=== PATIENT | female | born 1950 | race Caucasian/White ===

== ENCOUNTER 2016-04-03 11:20 | Inpatient (IN) | payer OTHER, BC ==
[~2016-04-03] VITALS: Ht 152.4 cm; Wt 88.4 kg
[~2016-04-03 11:20] MED LIST: ACTOS15 MG PO; ACTOS30 MG PO; ACTOS45 MG PO; ADVAIR 500/501 DISK IH; CINNAMON BARK500 MG PO; CINNAMON500 MG PO; CLOTRIM ANTIFUN15 GM TP; COLACE100 MG PO; COUMADIN,JANTO7.5 MG PO; COUMADIN,JANTOV10 MG PO; COUMADIN10 MG PO; COUMADIN5 MG PO; COZAAR100 MG PO; CYPROHEPTADINE H4 MG PO; Cinnamon Bark PO; Cozaar PO; DEPAKOTE ER500 MG PO; DEPAKOTE500 MG PO; DOCUSATE SODIU100 MG PO; ENDOCET 5-3251 EACH PO; FEMARA2.5 MG PO; FEOSOL325 MG PO; FISH OIL 1,0001 EAC7 PO; FISH OIL300 MG PO; GLUCOPHAGE1000 MG PO; GLUCOPHAGE500 MG PO; Glucotrol PO; HYDROCODON-ACE1 EAC7 PO; K-DUR20 MEQ PO; KEFLEX500 MG PO; LASIX40 MG PO; LASIX80 MG PO; LEVAQUIN500 MG PO; LOVENOX30 MG/0.3 SC; Levothroid,Synthroid PO; MAGNESIUM400 M1 PO; Mag-Ox PO; NORCO 5/3251 TABLET PO; OXAYDO5 MG PO; OXYCODONE HCL5 MG PO; Omega III EPA + DHA PO; PRAVACHOL80 MG PO; PREDNISONE10 M1 PO; PREDNISONE10 MG PO; PROAIR HFA8.5 GM IH; PROMETHAZINE HC25 M1 PO; PROVENTIL,2.5 MG/3 M IH; Proventil,Ventolin H IH; ROXICODONE5 MG PO; SENOKOT S,PE1 TABLET PO; SINGULAIR10 MG PO; SYMBICORT60 INHALAT IH; SYNTHROID88 MCG PO; Singulair PO; TRANSDERM-SCO1 PATCH TD; TYLENOL REGULA325 MG PO; Tylenol Regular Stre PO; VENOFER100 MG/5 M IV; VITAMIN D22000 UNIT PO; VITAMIN K240 MCG PO; XOPENEX1.25 MG/0. IH; XOPENEX1.25 MG/3 IH; Zocor PO
[2016-04-03 11:51] LABS: HEMATOCRIT 36.6 % (36.0-46.0); MCH 28.5 PG (29.0-34.0); MCHC 31.7 G/DL (30.0-36.0); MCV 89.9 FL (83-99); MEAN PLAT.VOLUME 9.8 uM^3 (9.5-12.4); PLATELET COUNT 207 K/uL (156-360); RBC DIS.WIDTH-CV 16.2 % (11.8-14.6); RBC DIS.WIDTH-SD 52.1 % (39-53); RED BLOOD COUNT 4.07 M/uL (3.80-5.20); WHITE BLOOD COUNT 6.7 K/uL (4.1-10.2)
[2016-04-03] MEDS ORDERED: WARFARIN SODIUM10 MG PO (11:53)
[2016-04-03] MEDS ORDERED: ACTOS30 MG PO (11:57)
[2016-04-03 11:58] LABS: BASOPHIL COUNT 0.1 K/uL (0-0.1); EOSINOPHIL (%) 0 % (0-5); IMMATURE GRANULOCYTE (%) 0.1 % (0.0-0.7); IMMATURE GRANULOCYTE COUNT 0.1 K/uL; LYMPHOCYTE COUNT 0.9 K/uL (1.0-2.8); MONOCYTE (%) 8.4 % (3-12); MONOCYTE COUNT 0.6 K/uL (0-0.8); NEUTROPHIL COUNT 5.2 K/uL (1.8-6.4)
[2016-04-03] MEDS ORDERED: METFORMIN HCL1000 MG PO (11:58)
[2016-04-03] MEDS ORDERED: SINGULAIR10 MG PO (11:59)
[2016-04-03] MEDS ORDERED: OXAYDO5 MG PO (11:59)
[2016-04-03] MEDS ORDERED: HYDROCODON-ACE1 EAC7 PO (12:00)
[2016-04-03 12:09] LABS: CHLORIDE 101 mEq/L (99-109); POTASSIUM 3.7 mEq/L (3.7-5.4); SODIUM 138 mEq/L (136-147)
[2016-04-03 12:10] LABS: GLUCOSE 149 mg/dL (70-99)
[2016-04-03 12:12] LABS: ANION GAP 11 MEQ/L (2-14); TROP-I INTERPRETATION NEGATIVE; TROPONIN-I 0.03 ng/mL (0.0-0.30)
[2016-04-03 12:14] LABS: GFR ESTIMATE (CALCULATED) 40 mL/min/
[2016-04-03 12:15] LABS: UREA NITROGEN (BUN) 26 mg/dL (9-23)
[2016-04-03 16:16] LABS: INTER. NORMALIZED RATIO 1.3
[2016-04-03 16:19] LABS: PROTHROMBIN TIME 12.9 (9.2-11.2)
[2016-04-03] MEDS ORDERED: PREDNISONE10 MG PO (16:19)
[2016-04-03] MEDS ORDERED: AZITHROMYCIN250 MG1 PO (16:19)
[2016-04-03] MEDS ORDERED: OXYBUTYNIN CHLOR5 M1 PO (16:20)
[2016-04-03] MEDS ORDERED: CYANOCOBAL1000 MCG/2 IM (16:20)
[2016-04-03 17:37] VITALS: BP 136/74
[2016-04-03 18:13] VITALS: BP 136/74
[2016-04-03 19:47] LABS: TROP-I INTERPRETATION NEGATIVE; TROPONIN-I 0.03 ng/mL (0.0-0.30)
[2016-04-03 20:00] VITALS: BP 125/74
[2016-04-04] VITALS: BP 115/66
[2016-04-04 01:19] LABS: TROP-I INTERPRETATION NEGATIVE; TROPONIN-I 0.01 ng/mL (0.0-0.30)
[2016-04-04 04:00] VITALS: BP 148/70
[2016-04-04 06:05] LABS: HEMATOCRIT 34.7 % (36.0-46.0); MCH 28.3 PG (29.0-34.0); MCHC 31.4 G/DL (30.0-36.0); MCV 90.1 FL (83-99); MEAN PLAT.VOLUME 10.3 uM^3 (9.5-12.4); PLATELET COUNT 177 K/uL (156-360); RBC DIS.WIDTH-CV 16.2 % (11.8-14.6); RBC DIS.WIDTH-SD 53.3 % (39-53); RED BLOOD COUNT 3.85 M/uL (3.80-5.20)
[2016-04-04 06:06] LABS: WHITE BLOOD COUNT 4.5 K/uL (4.1-10.2)
[2016-04-04 06:07] LABS: INTER. NORMALIZED RATIO 1.4; PROTHROMBIN TIME 14.8 (9.2-11.2); PTT 39.1 (25-32)
[2016-04-04 06:12] LABS: ANION GAP 9 MEQ/L (2-14); CHLORIDE 103 MEQ/L (99-109); GFR ESTIMATE (CALCULATED) > 59 mL/min/; GLUCOSE 205 mg/dL (70-99); POTASSIUM 4.2 MEQ/L (3.7-5.4); SAMPLE HEMOLYSIS CHECK 0; SAMPLE ICTERIC CHECK 0; SAMPLE LIPEMIA CHECK 0; SODIUM 138 MEQ/L (136-147); UREA NITROGEN (BUN) 22 mg/dL (9-23)
[2016-04-04 07:40] VITALS: BP 127/65
[2016-04-04 08:01] LABS: INTERNAL CONTROL VALID? YES
[2016-04-04 12:18] VITALS: BP 128/71
[2016-04-04 15:30] VITALS: BP 134/66
[2016-04-04 19:54] VITALS: BP 136/64
[2016-04-05] VITALS: BP 133/63
[2016-04-05 04:00] VITALS: BP 156/74
[2016-04-05 07:21] VITALS: BP 147/72
[2016-04-05 08:14] LABS: INTER. NORMALIZED RATIO 2.5
[2016-04-05 11:00] VITALS: BP 138/64
[2016-04-05 16:13] VITALS: BP 134/63
[2016-04-05 16:28] LABS: INFLUENZA A VIRAL ANTIGEN NEGATIVE; INFLUENZA B VIRAL ANTIGEN NEGATIVE
[2016-04-05 20:01] VITALS: BP 148/70
[2016-04-06] VITALS: BP 168/70
[2016-04-06 04:00] VITALS: BP 176/73
[2016-04-06 07:13] LABS: INTER. NORMALIZED RATIO 2.9; PROTHROMBIN TIME 30.3 (9.2-11.2)
[2016-04-06 07:18] LABS: ANION GAP 25 MEQ/L (2-14); CHLORIDE 99 MEQ/L (99-109); GFR ESTIMATE (CALCULATED) > 59 mL/min/; GLUCOSE 201 mg/dL (70-99); MAGNESIUM 1.9 mg/dl (1.3-2.7); POTASSIUM 4.7 MEQ/L (3.7-5.4); SAMPLE HEMOLYSIS CHECK 0; SAMPLE ICTERIC CHECK 0; SAMPLE LIPEMIA CHECK 0; SODIUM 145 MEQ/L (136-147); UREA NITROGEN (BUN) 26 mg/dL (9-23)
[2016-04-06 07:19] LABS: HEMATOCRIT 34.5 % (36.0-46.0); MCH 28.5 PG (29.0-34.0); MCHC 31.3 G/DL (30.0-36.0); MEAN PLAT.VOLUME 10.9 uM^3 (9.5-12.4); PLATELET COUNT 187 K/uL (156-360); RBC DIS.WIDTH-CV 16.3 % (11.8-14.6); RBC DIS.WIDTH-SD 54.1 % (39-53); RED BLOOD COUNT 3.79 M/uL (3.80-5.20)
[2016-04-06 07:20] LABS: WHITE BLOOD COUNT 11.2 K/uL (4.1-10.2)
[2016-04-06 08:54] VITALS: BP 153/73
[2016-04-06 15:45] VITALS: BP 121/60
[2016-04-06 23:44] VITALS: BP 189/88
[2016-04-07 07:09] LABS: EOSINOPHIL (%) 0 % (0-5); HEMATOCRIT 33.6 % (36.0-46.0); IMMATURE GRANULOCYTE (%) 1.7 % (0.0-0.7); IMMATURE GRANULOCYTE COUNT 0.2 K/uL; LYMPHOCYTE COUNT 0.9 K/uL (1.0-2.8); MCH 28.2 PG (29.0-34.0); MCHC 32.1 G/DL (30.0-36.0); MCV 87.7 FL (83-99); MEAN PLAT.VOLUME 10.4 uM^3 (9.5-12.4); MONOCYTE (%) 1.3 % (3-12); MONOCYTE COUNT 0.1 K/uL (0-0.8); NEUTROPHIL (%) 88.4 % (45-76); NEUTROPHIL COUNT 9.1 K/uL (1.8-6.4); PLATELET COUNT 188 K/uL (156-360); RBC DIS.WIDTH-CV 15.9 % (11.8-14.6); RBC DIS.WIDTH-SD 51.4 % (39-53); RED BLOOD COUNT 3.83 M/uL (3.80-5.20); WHITE BLOOD COUNT 10.3 K/uL (4.1-10.2)
[2016-04-07 07:12] LABS: INTER. NORMALIZED RATIO 2.6; PROTHROMBIN TIME 26.8 (9.2-11.2)
[2016-04-07 07:31] LABS: ANION GAP 13 MEQ/L (2-14); CHLORIDE 97 MEQ/L (99-109); GFR ESTIMATE (CALCULATED) > 59 mL/min/; GLUCOSE 222 mg/dL (70-99); POTASSIUM 3.9 MEQ/L (3.7-5.4); SAMPLE HEMOLYSIS CHECK 0; SAMPLE ICTERIC CHECK 0; SAMPLE LIPEMIA CHECK 0; SODIUM 139 MEQ/L (136-147); UREA NITROGEN (BUN) 30 mg/dL (9-23)
[2016-04-07 07:34] LABS: MAGNESIUM 1.6 mg/dl (1.3-2.7)
[2016-04-07 12:50] VITALS: BP 118/58
[2016-04-07 15:18] VITALS: BP 149/72
[2016-04-07 23:49] VITALS: BP 174/72
[2016-04-08 06:49] LABS: POINT-OF-CARE USER ID STWLMB34
[2016-04-08 07:21] LABS: HEMATOCRIT 34.1 % (36.0-46.0); MCH 28.2 PG (29.0-34.0); MCV 88.3 FL (83-99); MEAN PLAT.VOLUME 10.8 uM^3 (9.5-12.4); PLATELET COUNT 202 K/uL (156-360); RBC DIS.WIDTH-CV 15.8 % (11.8-14.6); RBC DIS.WIDTH-SD 50.9 % (39-53); RED BLOOD COUNT 3.86 M/uL (3.80-5.20); WHITE BLOOD COUNT 10.4 K/uL (4.1-10.2)
[2016-04-08 07:29] LABS: INTER. NORMALIZED RATIO 2.2
[2016-04-08 07:41] LABS: ANION GAP 13 MEQ/L (2-14); CHLORIDE 96 MEQ/L (99-109); GFR ESTIMATE (CALCULATED) > 59 mL/min/; GLUCOSE 248 mg/dL (70-99); MAGNESIUM 1.8 mg/dl (1.3-2.7); POTASSIUM 4.3 MEQ/L (3.7-5.4); SAMPLE HEMOLYSIS CHECK 1; SAMPLE ICTERIC CHECK 0; SAMPLE LIPEMIA CHECK 0; SODIUM 137 MEQ/L (136-147); UREA NITROGEN (BUN) 34 mg/dL (9-23)
[2016-04-08 08:40] VITALS: BP 156/72
[2016-04-08 10:53] LABS: EOSINOPHIL (%) 0 % (0-5); IMMATURE GRANULOCYTE (%) 2.1 % (0.0-0.7); IMMATURE GRANULOCYTE COUNT 0.2 K/uL; LYMPHOCYTE COUNT 0.8 K/uL (1.0-2.8); MONOCYTE (%) 1.5 % (3-12); MONOCYTE COUNT 0.2 K/uL (0-0.8); NEUTROPHIL (%) 88.2 % (45-76); NEUTROPHIL COUNT 9.2 K/uL (1.8-6.4)
[2016-04-08 14:31] LABS: HEMATOLOGY COMMENT 1 SMEAR COMPATIBLE
[2016-04-08 15:15] VITALS: BP 166/74
[2016-04-08 16:23] LABS: POINT-OF-CARE USER ID STWLMB34
[2016-04-08 23:15] VITALS: BP 150/66
[2016-04-09 06:27] LABS: HEMATOCRIT 36.5 % (36.0-46.0); MCH 27.4 PG (29.0-34.0); MCV 88.4 FL (83-99); MEAN PLAT.VOLUME 10.2 uM^3 (9.5-12.4); NRBC (%) 0.3 /100 WBC (0-0); PLATELET COUNT 220 K/uL (156-360); RBC DIS.WIDTH-SD 51.7 % (39-53); RED BLOOD COUNT 4.13 M/uL (3.80-5.20); WHITE BLOOD COUNT 11.8 K/uL (4.1-10.2)
[2016-04-09 06:44] LABS: INTER. NORMALIZED RATIO 3.2
[2016-04-09 07:03] LABS: ANION GAP 12 MEQ/L (2-14); CHLORIDE 93 MEQ/L (99-109); GFR ESTIMATE (CALCULATED) 53 mL/min/; GLUCOSE 198 mg/dL (70-99); MAGNESIUM 1.9 mg/dl (1.3-2.7); POTASSIUM 3.6 MEQ/L (3.7-5.4); PROTHROMBIN TIME 33.7 (9.2-11.2); SAMPLE HEMOLYSIS CHECK 0; SAMPLE ICTERIC CHECK 0; SAMPLE LIPEMIA CHECK 0; SODIUM 139 MEQ/L (136-147); UREA NITROGEN (BUN) 37 mg/dL (9-23)
[2016-04-09 07:42] VITALS: BP 175/83
[2016-04-09 08:58] LABS: DELETE MACHINE DIFF? YES
[2016-04-09 08:59] LABS: ABS NEUTROPHIL COUNT 10.74; ANISOCYTOSIS 1+; HYPOCHROMASIA OCC; MACROCYTES OCC; MICROCYTOSIS OCC; PLAT.SUFFICIENCY ADEQUATE; SPHEROCYTES OCC; USER ID TLW
[2016-04-09 15:50] VITALS: BP 150/73
[2016-04-09 23:37] VITALS: BP 159/68
[2016-04-10 06:58] LABS: INTER. NORMALIZED RATIO 3.3; PROTHROMBIN TIME 35.1 (9.2-11.2)
[2016-04-10 08:35] VITALS: BP 129/63
[2016-04-10] MEDS ORDERED: LEVEMIR100 UNIT/2 SC (11:43)
[2016-04-10] MEDS ORDERED: PREDNISONE10 MG PO (11:43)
[2016-04-10] MEDS ORDERED: MYCOSTATIN 100,60 ML PO (11:43)
[2016-04-10] MEDS ORDERED: SPIRIVA RESPIMAT4 GM IH (11:43)
[2016-04-10] MEDS ORDERED: AUGMENTIN500 MG PO (11:43)
[2016-04-10] MEDS ORDERED: COUMADIN5 MG PO (11:48)
[2016-04-10] MEDS ORDERED: COUMADIN6 MG PO (12:06)
== END 2016-04-10 14:49 | disposition home or self-care (01) | DRG 189 ==
LOC: EME 11:20 → 2EASTP 16:02 → EDOF 16:02 → 2EASTP 17:21
PROVIDERS: Emergency Medicine; Internal Medicine
DX: J96.01 Acute respiratory failure with hypoxia (principal); J18.9 Pneumonia, unspecified organism; N17.9 Acute kidney failure, unspecified; J45.41 Moderate persistent asthma with (acute) exacerbation; B37.0 Candidal stomatitis; E87.6 Hypokalemia; J98.4 Other disorders of lung; E11.9 Type 2 diabetes mellitus without complications; I10 Essential (primary) hypertension; E78.5 Hyperlipidemia, unspecified; I48.2 Chronic atrial fibrillation; I50.9 Heart failure, unspecified; G47.33 Obstructive sleep apnea (adult) (pediatric); I27.2 Other secondary pulmonary hypertension; K21.9 Gastro-esophageal reflux disease without esophagitis; D63.8 Anemia in other chronic diseases classified elsewhere; K59.00 Constipation, unspecified; E03.9 Hypothyroidism, unspecified; I73.9 Peripheral vascular disease, unspecified; Z96.652 Presence of left artificial knee joint; E66.9 Obesity, unspecified; Z68.38 Body mass index [BMI] 38.0-38.9, adult; Z85.3 Personal history of malignant neoplasm of breast; Z95.0 Presence of cardiac pacemaker; Z91.19 Patient's noncompliance with other medical treatment and regimen; Z79.01 Long term (current) use of anticoagulants; Z88.5 Allergy status to narcotic agent
CPT/HCPCS: 36415; 71010; 71020; 71250; 74000; 80048; 81003; 82948; 83605; 83735; 84484; 85025; 85027; 85610; 85730; 87040; 87070; 87106; 87205; 87449; 87502; 93005; 94640; 94640 76; 94760; 94799; 99202; 99281; 99285; J0696; J1650; J1815; J1956; J2920; J2930; J7030; J7050; J7512

== ENCOUNTER 2017-01-24 15:15 | Inpatient (IN) | payer OTHER, BC ==
[~2017-01-24] VITALS: Ht 152.4 cm; Wt 85.3 kg
[~2017-01-24 15:15] MED LIST changes: +AUGMENTIN500 MG PO; +AZITHROMYCIN250 MG1 PO; +COUMADIN6 MG PO; +CYANOCOBAL1000 MCG/2 IM; +LEVEMIR100 UNIT/2 SC; +METFORMIN HCL1000 MG PO; +MYCOSTATIN 100,60 ML PO; +OXYBUTYNIN CHLO10 MG PO; +SPIRIVA RESPIMAT4 GM IH; +WARFARIN SODIUM10 MG PO
[2017-01-24 16:06] LABS: HEMATOCRIT 38.4 % (36.0-46.0); MCH 28.1 PG (29.0-34.0); MCHC 31.5 G/DL (30.0-36.0); MCV 89.3 FL (83-99); MEAN PLAT.VOLUME 10.6 uM^3 (9.5-12.4); PLATELET COUNT 298 K/uL (156-360); RBC DIS.WIDTH-CV 16.5 % (11.8-14.6); RBC DIS.WIDTH-SD 53.4 % (39-53); WHITE BLOOD COUNT 11.1 K/uL (4.1-10.2)
[2017-01-24 16:12] LABS: INTER. NORMALIZED RATIO 2.9; PROTHROMBIN TIME 33.5 SEC (10.2-12.9)
[2017-01-24 16:17] LABS: CHLORIDE 101 mEq/L (99-109); POTASSIUM 4.9 mEq/L (3.7-5.4); SODIUM 135 mEq/L (136-147)
[2017-01-24 16:19] LABS: GLUCOSE 385 mg/dL (70-99)
[2017-01-24 16:20] LABS: ANION GAP 20 MEQ/L (2-14)
[2017-01-24 16:23] LABS: GFR ESTIMATE (CALCULATED) 40 mL/min/
[2017-01-24 16:24] LABS: UREA NITROGEN (BUN) 34 mg/dL (9-23)
[2017-01-24 16:27] LABS: TROP-I INTERPRETATION NEGATIVE; TROPONIN-I 0.03 ng/mL (0.0-0.30)
[2017-01-24 18:18] LABS: BASE EXCESS -3.8 mEq/L (-3 to +3); BICARBONATE 18.6 mEq/L (22-26); CARBOXY HGB 1.2 % (0-5); COMMENTS - BLOOD GASES NAC+; DEVICE NC; METHEMOGLOBIN 0.2 % (0-1.5); O2 FLOW 6 L/MIN; PCO2 25 mm Hg (35-45); PO2 75 mm Hg (80-100); SITE RB; TOTAL RESP RATE 17 resp/min; pH 7.48 (7.35-7.45)
[2017-01-24 18:28] LABS: CARBON DIOXIDE (BICARBONATE) 26.3 MEQ/L (20-31)
[2017-01-24] MEDS ORDERED: SPIRIVA RESPIMAT4 GM IH (18:29)
[2017-01-24] MEDS ORDERED: LEVEMIR100 UNIT/2 SC (18:31)
[2017-01-24] MEDS ORDERED: PREDNISONE10 MG PO (18:33)
[2017-01-24] MEDS ORDERED: COUMADIN7.5 MG PO (18:35)
[2017-01-24] MEDS ORDERED: TRAMADOL HCL50 MG PO (18:37)
[2017-01-24] MEDS ORDERED: GLIPIZIDE5 MG PO (18:39)
[2017-01-24] MEDS ORDERED: PROAIR HFA8.5 GM IH (18:41)
[2017-01-24] MEDS ORDERED: TYLENOL EXTRA500 MG PO (18:41)
[2017-01-24] MEDS ORDERED: NOVOLIN,HU100 UNITS1 SC (18:44)
[2017-01-24 19:29] LABS: POINT-OF-CARE METER ID UU13113747; POINT-OF-CARE USER ID 608261302
[2017-01-24 20:14] VITALS: BP 143/65
[2017-01-24 21:40] LABS: ADD MIUA? YES; BILIRUBIN NEGATIVE; BLOOD MODERATE; COLOR STRAW ((YELLOW)); GLUCOSE (STRIP) NEGATIVE; KETONES NEGATIVE; LEUKOCYTES NEGATIVE; NITRITE NEGATIVE; PROTEIN (STRIP) NEGATIVE; SPECIFIC GRAVITY 1.006 (1.000-1.030); UROBILINOGEN 0.2 MG/DL (0.2-1.0)
[2017-01-24 21:49] LABS: BACTERIA RARE /HPF; EPITHELIAL CELLS NONE SEEN /HPF; HYALINE CASTS 0-5 /LPF; MUCUS TRACE /LPF; RED BLOOD CELLS 0-5 /HPF (0-5); UCUL ADDED? NO; WHITE BLOOD CELLS 0-5 /HPF (0-5)
[2017-01-24 22:18] LABS: POINT-OF-CARE METER ID UU13113717
[2017-01-24 22:23] LABS: TROP-I INTERPRETATION NEGATIVE; TROPONIN-I 0.03 ng/mL (0.0-0.30)
[2017-01-24 22:53] LABS: ANION GAP 16 MEQ/L (2-14); CHLORIDE 99 MEQ/L (99-109); SAMPLE HEMOLYSIS CHECK 0; SAMPLE ICTERIC CHECK 0; SAMPLE LIPEMIA CHECK 0; SODIUM 140 MEQ/L (136-147)
[2017-01-24 22:59] LABS: GFR ESTIMATE (CALCULATED) 48 mL/min/; UREA NITROGEN (BUN) 30 mg/dL (9-23)
[2017-01-24 23:20] LABS: GLUCOSE 192 mg/dL (70-99); POTASSIUM 3.5 MEQ/L (3.7-5.4)
[2017-01-25] VITALS: BP 128/60
[2017-01-25 03:48] LABS: POINT-OF-CARE METER ID UU14174225
[2017-01-25 04:04] VITALS: BP 110/57
[2017-01-25 04:10] LABS: CHLORIDE 97 mEq/L (99-109); POTASSIUM 3.7 mEq/L (3.7-5.4); SODIUM 137 mEq/L (136-147)
[2017-01-25 04:12] LABS: EOSINOPHIL (%) 0.1 % (0-5); GLUCOSE 192 mg/dL (70-99); HEMATOCRIT 31.1 % (36.0-46.0); IMMATURE GRANULOCYTE (%) 0.5 % (0.0-0.7); IMMATURE GRANULOCYTE COUNT 0.1 K/uL; INSTRUMENT ABS NEUTROPHIL CT 10.4 K/uL; LYMPHOCYTE COUNT 1.5 K/uL (1.0-2.8); MCH 28.2 PG (29.0-34.0); MCHC 32.2 G/DL (30.0-36.0); MCV 87.6 FL (83-99); MEAN PLAT.VOLUME 10.2 uM^3 (9.5-12.4); MONOCYTE (%) 4.6 % (3-12); MONOCYTE COUNT 0.6 K/uL (0-0.8); NEUTROPHIL (%) 82.6 % (45-76); NEUTROPHIL COUNT 10.4 K/uL (1.8-6.4); NRBC (%) 0.2 /100 WBC (0-0); PLATELET COUNT 304 K/uL (156-360); RBC DIS.WIDTH-CV 16.1 % (11.8-14.6); RBC DIS.WIDTH-SD 51.8 % (39-53); RED BLOOD COUNT 3.55 M/uL (3.80-5.20); WHITE BLOOD COUNT 12.6 K/uL (4.1-10.2)
[2017-01-25 04:14] LABS: ANION GAP 16 MEQ/L (2-14)
[2017-01-25 04:16] LABS: GFR ESTIMATE (CALCULATED) 48 mL/min/
[2017-01-25 04:17] LABS: UREA NITROGEN (BUN) 31 mg/dL (9-23)
[2017-01-25 04:24] LABS: TROP-I INTERPRETATION NEGATIVE; TROPONIN-I 0.03 ng/mL (0.0-0.30)
[2017-01-25 08:10] LABS: INTERNAL CONTROL VALID? YES
[2017-01-25 08:44] VITALS: BP 130/70
[2017-01-25 08:48] LABS: POINT-OF-CARE METER ID UU14174225
[2017-01-25 09:52] LABS: INTER. NORMALIZED RATIO 2.8; PROTHROMBIN TIME 32.2 SEC (10.2-12.9)
[2017-01-25 11:15] VITALS: BP 130/60
[2017-01-25 11:52] LABS: POINT-OF-CARE METER ID UU14174225
[2017-01-25 15:18] VITALS: BP 119/61
[2017-01-25 17:24] LABS: POINT-OF-CARE METER ID UU14174225
[2017-01-25 19:46] VITALS: BP 111/57
[2017-01-25 19:57] LABS: POINT-OF-CARE METER ID UU13113717
[2017-01-25 21:30] LABS: POINT-OF-CARE METER ID UU13113717
[2017-01-26 00:29] VITALS: BP 114/61
[2017-01-26 04:54] LABS: POINT-OF-CARE METER ID UU14174225
[2017-01-26 05:15] VITALS: BP 120/71
[2017-01-26 06:48] LABS: HEMATOCRIT 33.5 % (36.0-46.0); MCH 27.3 PG (29.0-34.0); MCHC 30.4 G/DL (30.0-36.0); MCV 89.6 FL (83-99); PLATELET COUNT 298 K/uL (156-360); RBC DIS.WIDTH-CV 15.9 % (11.8-14.6); RBC DIS.WIDTH-SD 53.5 % (39-53); RED BLOOD COUNT 3.74 M/uL (3.80-5.20); WHITE BLOOD COUNT 14.5 K/uL (4.1-10.2)
[2017-01-26 06:51] LABS: INTER. NORMALIZED RATIO 2.8
[2017-01-26 07:13] LABS: ANION GAP 12 MEQ/L (2-14); CHLORIDE 100 MEQ/L (99-109); GFR ESTIMATE (CALCULATED) 53 mL/min/; GLUCOSE 133 mg/dL (70-99); POTASSIUM 4.3 MEQ/L (3.7-5.4); SAMPLE HEMOLYSIS CHECK 0; SAMPLE ICTERIC CHECK 0; SAMPLE LIPEMIA CHECK 0; SODIUM 140 MEQ/L (136-147); UREA NITROGEN (BUN) 33 mg/dL (9-23)
[2017-01-26 07:19] VITALS: BP 141/62
[2017-01-26 13:06] LABS: POINT-OF-CARE METER ID UU13113717
[2017-01-26 15:15] VITALS: BP 135/63
[2017-01-26 18:00] LABS: POINT-OF-CARE METER ID UU13113717
[2017-01-26 20:12] LABS: POINT-OF-CARE METER ID UU14174225
[2017-01-26 20:36] VITALS: BP 135/73
[2017-01-27] VITALS (10 sets, daily range): BP systolic 113–150; BP diastolic 55–70
[2017-01-27 00:49] LABS: POINT-OF-CARE METER ID UU14174225
[2017-01-27 05:59] LABS: POINT-OF-CARE METER ID UU14174225
[2017-01-27 06:41] LABS: HEMATOCRIT 30.4 % (36.0-46.0); MCH 28.7 PG (29.0-34.0); MCHC 32.2 G/DL (30.0-36.0); MCV 88.9 FL (83-99); MEAN PLAT.VOLUME 10.5 uM^3 (9.5-12.4); PLATELET COUNT 210 K/uL (156-360); RBC DIS.WIDTH-CV 15.9 % (11.8-14.6); RBC DIS.WIDTH-SD 52.1 % (39-53); RED BLOOD COUNT 3.42 M/uL (3.80-5.20); WHITE BLOOD COUNT 12.4 K/uL (4.1-10.2)
[2017-01-27 07:17] LABS: ANION GAP 15 MEQ/L (2-14); CHLORIDE 100 MEQ/L (99-109); GFR ESTIMATE (CALCULATED) 53 mL/min/; POTASSIUM 3.6 MEQ/L (3.7-5.4); SAMPLE HEMOLYSIS CHECK 0; SAMPLE ICTERIC CHECK 0; SAMPLE LIPEMIA CHECK 0; SODIUM 139 MEQ/L (136-147); UREA NITROGEN (BUN) 38 mg/dL (9-23)
[2017-01-27 07:24] LABS: GLUCOSE 233 mg/dL (70-99)
[2017-01-27 07:33] LABS: INTER. NORMALIZED RATIO 2.5; PROTHROMBIN TIME 28.3 SEC (10.2-12.9)
[2017-01-27 08:19] LABS: POINT-OF-CARE METER ID UU14174225
[2017-01-27 18:11] LABS: POINT-OF-CARE METER ID UU13113717
[2017-01-28] VITALS (12 sets, daily range): BP systolic 126–180; BP diastolic 56–75
[2017-01-28 06:59] LABS: INTER. NORMALIZED RATIO 2.6; PROTHROMBIN TIME 29.5 SEC (10.2-12.9)
[2017-01-28 07:59] LABS: POINT-OF-CARE METER ID UU13113717
[2017-01-28 10:49] LABS: POINT-OF-CARE METER ID UU14174225
[2017-01-28 10:49] LABS: POINT-OF-CARE METER ID UU13113717
[2017-01-28 12:16] LABS: POINT-OF-CARE METER ID UU13113717
[2017-01-28 17:23] LABS: POINT-OF-CARE METER ID UU14174225
[2017-01-28 20:05] LABS: BASE EXCESS 9.2 mEq/L (-3 to +3); CARBOXY HGB 1.2 % (0-5); METHEMOGLOBIN 1.1 % (0-1.5); pH 7.49 (7.35-7.45)
[2017-01-28 20:06] LABS: BICARBONATE 33.5 mEq/L (22-26); COMMENTS - BLOOD GASES C+; DEVICE HFNC; O2 FLOW 15 L/MIN; PCO2 44 mm Hg (35-45); PO2 45 mm Hg (80-100); SITE RR; TOTAL RESP RATE 36 resp/min
[2017-01-28 21:02] LABS: POINT-OF-CARE METER ID UU13113717
[2017-01-29] VITALS (13 sets, daily range): BP systolic 75–152; BP diastolic 44–77
[2017-01-29 06:35] LABS: HEMATOCRIT 28.7 % (36.0-46.0); MCH 28.9 PG (29.0-34.0); MCHC 32.1 G/DL (30.0-36.0); MCV 90.3 FL (83-99); MEAN PLAT.VOLUME 10.2 uM^3 (9.5-12.4); RBC DIS.WIDTH-CV 15.9 % (11.8-14.6); RBC DIS.WIDTH-SD 53.2 % (39-53); RED BLOOD COUNT 3.18 M/uL (3.80-5.20)
[2017-01-29 06:39] LABS: PLATELET COUNT 276 K/uL (156-360)
[2017-01-29 06:51] LABS: INTER. NORMALIZED RATIO 2.1; PROTHROMBIN TIME 23.6 SEC (10.2-12.9)
[2017-01-29 07:02] LABS: ANION GAP 13 MEQ/L (2-14); CHLORIDE 93 MEQ/L (99-109); GFR ESTIMATE (CALCULATED) 53 mL/min/; GLUCOSE 232 mg/dL (70-99); POTASSIUM 3.2 MEQ/L (3.7-5.4); SAMPLE HEMOLYSIS CHECK 0; SAMPLE ICTERIC CHECK 0; SAMPLE LIPEMIA CHECK 0; SODIUM 143 MEQ/L (136-147); UREA NITROGEN (BUN) 42 mg/dL (9-23)
[2017-01-29 07:23] LABS: POINT-OF-CARE METER ID UU13113717
[2017-01-29 11:11] LABS: POINT-OF-CARE METER ID UU13113717
[2017-01-29 13:42] LABS: METH RESISTANT S AUREUS PCR NEGATIVE (NEGATIVE)
[2017-01-29 13:57] LABS: PROBE CHECK PASS; SPECIMEN PROCESSING CONTROL PASS
[2017-01-29 14:49] LABS: PROTHROMBIN TIME 23.5 SEC (10.2-12.9)
[2017-01-29 14:52] LABS: PTT 27.2 SEC (25-37)
[2017-01-29 17:40] LABS: POINT-OF-CARE METER ID UU14208751
[2017-01-29 22:34] LABS: POINT-OF-CARE METER ID UU14208751
[2017-01-30] VITALS (24 sets, daily range): BP systolic 82–128; BP diastolic 38–70
[2017-01-30 05:43] LABS: EOSINOPHIL (%) 0 % (0-5); HEMATOCRIT 25.7 % (36.0-46.0); IMMATURE GRANULOCYTE COUNT 0.1 K/uL; INSTRUMENT ABS NEUTROPHIL CT 13.6 K/uL; LYMPHOCYTE COUNT 0.3 K/uL (1.0-2.8); MCH 28.6 PG (29.0-34.0); MCHC 31.5 G/DL (30.0-36.0); MCV 90.8 FL (83-99); MEAN PLAT.VOLUME 11.2 uM^3 (9.5-12.4); MONOCYTE (%) 0.8 % (3-12); MONOCYTE COUNT 0.1 K/uL (0-0.8); NEUTROPHIL (%) 95.9 % (45-76); NEUTROPHIL COUNT 13.6 K/uL (1.8-6.4); NRBC (%) 0.1 /100 WBC (0-0); PLATELET COUNT 248 K/uL (156-360); RBC DIS.WIDTH-CV 16.2 % (11.8-14.6); RBC DIS.WIDTH-SD 53.5 % (39-53); RED BLOOD COUNT 2.83 M/uL (3.80-5.20); WHITE BLOOD COUNT 14.1 K/uL (4.1-10.2)
[2017-01-30 05:45] LABS: INTER. NORMALIZED RATIO 2.1; PROTHROMBIN TIME 24.4 SEC (10.2-12.9)
[2017-01-30 06:25] LABS: C3 COMPLEMENT 161 MG/DL (58-170); C4 COMPLEMENT 30 MG/DL (10-40)
[2017-01-30 06:26] LABS: ANION GAP 16 MEQ/L (2-14); CHLORIDE 98 MEQ/L (99-109); GFR ESTIMATE (CALCULATED) 44 mL/min/; GLUCOSE 282 mg/dL (70-99); SAMPLE HEMOLYSIS CHECK 0; SAMPLE ICTERIC CHECK 0; SAMPLE LIPEMIA CHECK 0; SODIUM 146 MEQ/L (136-147); UREA NITROGEN (BUN) 56 mg/dL (9-23)
[2017-01-30 06:28] LABS: POTASSIUM 3.9 MEQ/L (3.7-5.4)
[2017-01-30 07:03] LABS: POINT-OF-CARE METER ID UU14208751
[2017-01-30 07:11] LABS: ERTH.SED.RATE 48 MM/HR (0-30)
[2017-01-30 12:40] LABS: POINT-OF-CARE METER ID UU14174217
[2017-01-30 18:23] LABS: POINT-OF-CARE METER ID UU14174217
[2017-01-31] VITALS (18 sets, daily range): BP systolic 93–150; BP diastolic 49–76
[2017-01-31 00:26] LABS: POINT-OF-CARE METER ID UU14314082
[2017-01-31 05:46] LABS: POINT-OF-CARE METER ID UU14174217
[2017-01-31 05:55] LABS: EOSINOPHIL (%) 0 % (0-5); HEMATOCRIT 26.3 % (36.0-46.0); IMMATURE GRANULOCYTE (%) 1.1 % (0.0-0.7); IMMATURE GRANULOCYTE COUNT 0.2 K/uL; INSTRUMENT ABS NEUTROPHIL CT 13.8 K/uL; LYMPHOCYTE COUNT 0.3 K/uL (1.0-2.8); MCH 27.6 PG (29.0-34.0); MCHC 30.8 G/DL (30.0-36.0); MCV 89.8 FL (83-99); MEAN PLAT.VOLUME 10.6 uM^3 (9.5-12.4); MONOCYTE (%) 1.3 % (3-12); MONOCYTE COUNT 0.2 K/uL (0-0.8); NEUTROPHIL (%) 95.2 % (45-76); NEUTROPHIL COUNT 13.8 K/uL (1.8-6.4); NRBC (%) 0.1 /100 WBC (0-0); PLATELET COUNT 287 K/uL (156-360); RBC DIS.WIDTH-CV 16.3 % (11.8-14.6); RED BLOOD COUNT 2.93 M/uL (3.80-5.20); WHITE BLOOD COUNT 14.5 K/uL (4.1-10.2)
[2017-01-31 06:24] LABS: ANION GAP 13 MEQ/L (2-14); CHLORIDE 101 MEQ/L (99-109); GFR ESTIMATE (CALCULATED) 48 mL/min/; GLUCOSE 188 mg/dL (70-99); POTASSIUM 3.4 MEQ/L (3.7-5.4); SAMPLE HEMOLYSIS CHECK 0; SAMPLE ICTERIC CHECK 0; SAMPLE LIPEMIA CHECK 0; SODIUM 150 MEQ/L (136-147); UREA NITROGEN (BUN) 61 mg/dL (9-23)
[2017-01-31 06:35] LABS: INTER. NORMALIZED RATIO 2.6; PROTHROMBIN TIME 30.4 SEC (10.2-12.9)
[2017-01-31 11:55] LABS: POINT-OF-CARE METER ID UU13113803
[2017-01-31 13:34] LABS: INTER. NORMALIZED RATIO 2.9; PROTHROMBIN TIME 33.4 SEC (10.2-12.9)
[2017-01-31 13:51] LABS: PTT 29.1 SEC (25-37)
[2017-01-31 18:22] LABS: POINT-OF-CARE METER ID UU13113803
[2017-01-31 20:54] LABS: POINT-OF-CARE METER ID UU14174217
[2017-02-01] VITALS (16 sets, daily range): BP systolic 116–144; BP diastolic 60–84
[2017-02-01 05:28] LABS: HEMATOCRIT 29.7 % (36.0-46.0); MCH 27.7 PG (29.0-34.0); MCV 92.5 FL (83-99); MEAN PLAT.VOLUME 10.1 uM^3 (9.5-12.4); NRBC (%) 0.1 /100 WBC (0-0); PLATELET COUNT 305 K/uL (156-360); RBC DIS.WIDTH-CV 16.2 % (11.8-14.6); RBC DIS.WIDTH-SD 54.8 % (39-53); RED BLOOD COUNT 3.21 M/uL (3.80-5.20); WHITE BLOOD COUNT 14.8 K/uL (4.1-10.2)
[2017-02-01 05:39] LABS: INTER. NORMALIZED RATIO 2.8; PROTHROMBIN TIME 32.7 SEC (10.2-12.9)
[2017-02-01 06:14] LABS: ALKALINE PHOSPHATASE 50 IU/L (3-129); ANION GAP 10 MEQ/L (2-14); CHLORIDE 101 MEQ/L (99-109); GFR ESTIMATE (CALCULATED) > 59 mL/min/; GLUCOSE 75 mg/dL (70-99); POTASSIUM 4.2 MEQ/L (3.7-5.4); SAMPLE HEMOLYSIS CHECK 0; SAMPLE ICTERIC CHECK 0; SAMPLE LIPEMIA CHECK 0; SODIUM 145 MEQ/L (136-147); TOTAL BILIRUBIN 0.9 MG/DL (0.0-1.0); UREA NITROGEN (BUN) 44 mg/dL (9-23)
[2017-02-01 07:38] LABS: EOSINOPHIL (%) 0 % (0-5); HEMATOLOGY COMMENT 1 SMEAR COMPATIBLE; IMMATURE GRANULOCYTE (%) 0.9 % (0.0-0.7); IMMATURE GRANULOCYTE COUNT 0.1 K/uL; INSTRUMENT ABS NEUTROPHIL CT 14.1 K/uL; LYMPHOCYTE COUNT 0.5 K/uL (1.0-2.8); MONOCYTE (%) 0.3 % (3-12); MONOCYTE COUNT 0.1 K/uL (0-0.8); NEUTROPHIL COUNT 14.1 K/uL (1.8-6.4)
[2017-02-01 12:50] LABS: POINT-OF-CARE METER ID UU14162636
[2017-02-01 17:39] LABS: POINT-OF-CARE METER ID UU14208751
[2017-02-02] VITALS (8 sets, daily range): BP systolic 110–160; BP diastolic 53–88
[2017-02-02 05:24] LABS: INTER. NORMALIZED RATIO 3.1; PROTHROMBIN TIME 35.2 SEC (10.2-12.9)
[2017-02-02 09:11] LABS: POINT-OF-CARE METER ID UU14314083
[2017-02-02 09:39] LABS: POINT-OF-CARE METER ID UU14208751
[2017-02-02 11:58] LABS: POINT-OF-CARE METER ID UU14314083
[2017-02-02 12:05] LABS: SINGLE STRAND DNA ANTIBODY+ <69 U/mL (<230)
[2017-02-02 14:33] LABS: Neutrophil Cytoplasmic Aby Negative (Negative)
[2017-02-02 18:22] LABS: POINT-OF-CARE METER ID UU14314083
[2017-02-02 21:49] LABS: POINT-OF-CARE METER ID UU14314083
[2017-02-03] VITALS (8 sets, daily range): BP systolic 118–150; BP diastolic 61–75
[2017-02-03 06:00] LABS: INTER. NORMALIZED RATIO 2.6; PROTHROMBIN TIME 29.6 SEC (10.2-12.9)
[2017-02-03 06:24] LABS: POINT-OF-CARE METER ID UU14314083
[2017-02-03 06:31] LABS: ANION GAP 11 MEQ/L (2-14); CHLORIDE 97 MEQ/L (99-109); GFR ESTIMATE (CALCULATED) > 59 mL/min/; POTASSIUM 3.7 MEQ/L (3.7-5.4); SAMPLE HEMOLYSIS CHECK 0; SAMPLE ICTERIC CHECK 0; SAMPLE LIPEMIA CHECK 0; SODIUM 143 MEQ/L (136-147); UREA NITROGEN (BUN) 40 mg/dL (9-23)
[2017-02-03 06:32] LABS: GLUCOSE 155 mg/dL (70-99)
[2017-02-03 13:28] LABS: POINT-OF-CARE METER ID UU14314083
[2017-02-03 15:45] LABS: POINT-OF-CARE METER ID UU14314083
[2017-02-03 16:43] LABS: POINT-OF-CARE METER ID UU13113774
[2017-02-03 21:12] LABS: POINT-OF-CARE METER ID UU13113725
[2017-02-04 04:04] VITALS: BP 146/67
[2017-02-04 06:29] LABS: INTER. NORMALIZED RATIO 1.9; PROTHROMBIN TIME 21.7 SEC (10.2-12.9)
[2017-02-04 06:32] LABS: HEMATOCRIT 27.4 % (36.0-46.0); MCH 28.1 PG (29.0-34.0); MCHC 30.7 G/DL (30.0-36.0); MCV 91.6 FL (83-99); MEAN PLAT.VOLUME 10.3 uM^3 (9.5-12.4); NRBC (%) 0.2 /100 WBC (0-0); PLATELET COUNT 357 K/uL (156-360); RBC DIS.WIDTH-CV 15.3 % (11.8-14.6); RBC DIS.WIDTH-SD 50.6 % (39-53); RED BLOOD COUNT 2.99 M/uL (3.80-5.20); WHITE BLOOD COUNT 13.3 K/uL (4.1-10.2)
[2017-02-04 06:38] LABS: POINT-OF-CARE METER ID UU13113725
[2017-02-04 07:09] LABS: ANION GAP 10 MEQ/L (2-14); CHLORIDE 96 MEQ/L (99-109); GFR ESTIMATE (CALCULATED) > 59 mL/min/; GLUCOSE 208 mg/dL (70-99); POTASSIUM 3.7 MEQ/L (3.7-5.4); SAMPLE HEMOLYSIS CHECK 0; SAMPLE ICTERIC CHECK 0; SAMPLE LIPEMIA CHECK 0; SODIUM 141 MEQ/L (136-147); UREA NITROGEN (BUN) 32 mg/dL (9-23)
[2017-02-04 07:36] VITALS: BP 140/71
[2017-02-04 11:29] LABS: POINT-OF-CARE METER ID UU13113774
[2017-02-04 16:40] VITALS: BP 157/80
[2017-02-04 16:56] LABS: POINT-OF-CARE METER ID UU13113774
[2017-02-04 20:09] VITALS: BP 141/65
[2017-02-04 21:34] LABS: POINT-OF-CARE METER ID UU13113774
[2017-02-05 00:22] VITALS: BP 154/71
[2017-02-05 04:55] VITALS: BP 151/67
[2017-02-05 06:16] LABS: POINT-OF-CARE METER ID UU13113725
[2017-02-05 07:52] VITALS: BP 142/70
[2017-02-05 08:49] LABS: INTER. NORMALIZED RATIO 1.6; PROTHROMBIN TIME 18.6 SEC (10.2-12.9)
[2017-02-05 11:40] VITALS: BP 161/72
[2017-02-05 11:53] LABS: POINT-OF-CARE METER ID UU13113725
[2017-02-05] MEDS ORDERED: DUONEB 2.5-0.5 M3 ML PEP (11:53)
[2017-02-05] MEDS ORDERED: MUCINEX600 MG PO (11:55)
[2017-02-05] MEDS ORDERED: PREDNISONE10 MG PO (11:56)
[2017-02-05] MEDS ORDERED: AZATHIOPRINE50 MG PO (11:56)
[2017-02-05] MEDS ORDERED: OXAYDO5 MG PO (11:57)
[2017-02-05] MEDS ORDERED: TRAMADOL HCL50 MG PO (11:57)
[2017-02-06 10:46] LABS: HBSG INDEX 0.24; HPCA INDEX 0.28
== END 2017-02-05 15:24 | DRG 166 ==
LOC: EME 15:15 → 5SOUTH 18:28 → 4WEST 18:28 → EDOF 18:28 → ENRESERV 18:33 → 5SOUTH 20:11 → ENRESERV 01-29 10:21 → 4WEST 01-29 11:25 → ENRESERV 02-03 11:36 → 5EAST 02-03 16:05
PROVIDERS: Emergency Medicine; Family Medicine; Hospitalist; Internal Medicine Critical Care Medicine; Internal Medicine Infectious Disease; Internal Medicine Pulmonary Disease; Nurse Practitioner Adult Health; Physician Assistant Medical; Specialist
DX: J45.901 Unspecified asthma with (acute) exacerbation (principal); J18.9 Pneumonia, unspecified organism; J44.0 Chronic obstructive pulmonary disease with (acute) lower respiratory infection; J96.21 Acute and chronic respiratory failure with hypoxia; L95.8 Other vasculitis limited to the skin; I11.0 Hypertensive heart disease with heart failure; I50.33 Acute on chronic diastolic (congestive) heart failure; N17.9 Acute kidney failure, unspecified; B37.0 Candidal stomatitis; E87.2 Acidosis; D69.2 Other nonthrombocytopenic purpura; E11.65 Type 2 diabetes mellitus with hyperglycemia; E11.51 Type 2 diabetes mellitus with diabetic peripheral angiopathy without gangrene; E11.42 Type 2 diabetes mellitus with diabetic polyneuropathy; I27.20 Pulmonary hypertension, unspecified; T38.0X5A Adverse effect of glucocorticoids and synthetic analogues, initial encounter; I48.91 Unspecified atrial fibrillation; I35.0 Nonrheumatic aortic (valve) stenosis; G47.33 Obstructive sleep apnea (adult) (pediatric); Z99.81 Dependence on supplemental oxygen; E03.9 Hypothyroidism, unspecified; K59.09 Other constipation; E78.5 Hyperlipidemia, unspecified; G40.909 Epilepsy, unspecified, not intractable, without status epilepticus; E66.9 Obesity, unspecified; Z68.37 Body mass index [BMI] 37.0-37.9, adult; I25.10 Atherosclerotic heart disease of native coronary artery without angina pectoris; K21.9 Gastro-esophageal reflux disease without esophagitis; G43.909 Migraine, unspecified, not intractable, without status migrainosus; Z95.0 Presence of cardiac pacemaker; Z85.3 Personal history of malignant neoplasm of breast; Z90.12 Acquired absence of left breast and nipple; Z92.3 Personal history of irradiation; Z79.811 Long term (current) use of aromatase inhibitors; Z79.01 Long term (current) use of anticoagulants; Z79.4 Long term (current) use of insulin; Z96.659 Presence of unspecified artificial knee joint; Z80.0 Family history of malignant neoplasm of digestive organs; Z80.1 Family history of malignant neoplasm of trachea, bronchus and lung; Z82.5 Family history of asthma and other chronic lower respiratory diseases
CPT/HCPCS: 36600; 71010; 71020; 71250; 80048; 80048 91; 80053; 81003; 82803; 82948; 83735; 83880; 84100; 84145 90; 84484; 85025; 85027; 85610; 85651; 85730; 86021 90; 86147 90; 86160; 86162 90; 86226 90; 86235; 86430; 86803; 86850; 86900; 86901; 87040; 87070; 87116; 87205; 87206; 87254 90; 87278; 87340; 87449; 87502; 87641; 88108; 88313; 93005; 93306; 94002; 94003; 94010; 94640; 94640 76; 94660; 94667; 94668; 94760; 94799; 97530 GO; 97530 GP; 99202; 99281; 99285; C1751; J0295; J0456; J0696; J1815; J1940; J1953; J2250; J2270; J2704; J2930; J3010; J7040; J7050; J7500; J7512; P9017

== ENCOUNTER 2017-02-14 23:19 | Inpatient (IN) | payer OTHER, BC ==
[~2017-02-14] VITALS: Ht 152.4 cm; Wt 86.3 kg
[~2017-02-14 23:19] MED LIST changes: +AZATHIOPRINE50 MG PO; +COUMADIN7.5 MG PO; +DUONEB 2.5-0.5 M3 ML PEP; +GLIPIZIDE5 MG PO; +MUCINEX600 MG PO; +NOVOLIN,HU100 UNITS1 SC; +TRAMADOL HCL50 MG PO; +TYLENOL EXTRA500 MG PO
[2017-02-15] VITALS (9 sets, daily range): BP systolic 109–148; BP diastolic 52–66
[2017-02-15 00:24] LABS: INTER. NORMALIZED RATIO 2.7
[2017-02-15 00:26] LABS: PTT 30.9 SEC (25-37)
[2017-02-15 00:33] LABS: TROP-I INTERPRETATION NEGATIVE; TROPONIN-I 0.04 ng/mL (0.0-0.30)
[2017-02-15 00:39] LABS: ALBUMIN 3.3 g/dL (3.2-4.8); CHLORIDE 91 mEq/L (99-109); POTASSIUM 4.3 mEq/L (3.7-5.4); SODIUM 135 mEq/L (136-147)
[2017-02-15 00:42] LABS: GLUCOSE 295 mg/dL (70-99); TOTAL PROTEIN 6.3 g/dL (6.4-8.3)
[2017-02-15 00:43] LABS: BASOPHIL (%) 0.1 % (0-1); EOSINOPHIL (%) 0 % (0-5); HEMATOCRIT 30.8 % (36.0-46.0); HEMOGLOBIN 9.3 G/DL (11.9-15.5); IMMATURE GRANULOCYTE (%) 2.4 % (0.0-0.7); LYMPHOCYTE (%) 1.3 % (15-42); LYMPHOCYTE COUNT 0.3 K/uL (1.0-2.8); MCH 29.2 PG (29.0-34.0); MCHC 30.2 G/DL (30.0-36.0); MCV 96.9 FL (83-99); MONOCYTE (%) 4.3 % (3-12); NEUTROPHIL (%) 91.9 % (45-76); NEUTROPHIL COUNT 21.1 K/uL (1.8-6.4); NRBC (%) 0.1 /100 WBC (0-0); RBC DIS.WIDTH-CV 18.2 % (11.8-14.6); RBC DIS.WIDTH-SD 62.6 % (39-53); RED BLOOD COUNT 3.18 M/uL (3.80-5.20)
[2017-02-15 00:44] LABS: PLATELET COUNT 252 K/uL (156-360); TOTAL BILIRUBIN 0.5 mg/dL (0.0-1.0)
[2017-02-15 00:45] LABS: ALKALINE PHOSPHATASE 53 IU/L (3-129); CREATININE 1.3 mg/dL (0.6-1.3); GFR ESTIMATE (CALCULATED) 44 mL/min/
[2017-02-15 00:46] LABS: UREA NITROGEN (BUN) 32 mg/dL (9-23)
[2017-02-15 00:47] LABS: AST (GOT) 14 IU/L (2-34)
[2017-02-15 00:48] LABS: ALT (GPT) 30 IU/L (3-49)
[2017-02-15] MEDS ORDERED: SENNA PLUS TAB1 EACH PO (02:55)
[2017-02-15] MEDS ORDERED: WARFARIN SODIUM6 MG PO (02:58)
[2017-02-15] MEDS ORDERED: WARFARIN SODIUM2 MG PO (02:58)
[2017-02-15] MEDS ORDERED: DUONEB 2.5-0.5 M3 ML AEROSOL ×2 (11:28→11:29)
[2017-02-15] MEDS ORDERED: BISAC-EVAC10 MG PR (11:29)
[2017-02-15] MEDS ORDERED: GAVILAX8.5 GM PO (11:30)
[2017-02-15] MEDS ORDERED: MILK OF MAGN PO (11:30)
[2017-02-15] MEDS ORDERED: ROXICODONE5 MG PO (11:31)
[2017-02-15 13:13] LABS: INTER. NORMALIZED RATIO 3.9
[2017-02-15 15:35] LABS: HEMATOCRIT 25.9 % (36.0-46.0); HEMOGLOBIN 8.1 G/DL (11.9-15.5); MCV 96.6 FL (83-99)
[2017-02-15 19:37] LABS: HEMATOCRIT 25.1 % (36.0-46.0); HEMOGLOBIN 7.8 G/DL (11.9-15.5); MCV 95.1 FL (83-99)
[2017-02-16] VITALS (30 sets, daily range): BP systolic 100–1321; BP diastolic 53–98
[2017-02-16 02:52] LABS: APPEARANCE CLEAR ((CLEAR)); BILIRUBIN NEGATIVE; BLOOD MODERATE; COLOR YELLOW ((YELLOW)); GLUCOSE (STRIP) NEGATIVE; KETONES NEGATIVE; LEUKOCYTES TRACE; NITRITE NEGATIVE; PROTEIN (STRIP) NEGATIVE; SPECIFIC GRAVITY 1.011 (1.000-1.030); UROBILINOGEN 0.2 MG/DL (0.2-1.0)
[2017-02-16 02:58] LABS: BACTERIA RARE /HPF; EPITHELIAL CELLS RARE /HPF; MUCUS NONE SEEN /LPF; RED BLOOD CELLS 20-30 /HPF (0-5)
[2017-02-16 02:59] LABS: BASE EXCESS 14.8 mEq/L (-3 to +3); BICARBONATE 39.6 mEq/L (22-26); CARBOXY HGB 2.7 % (0-5); METHEMOGLOBIN 1.3 % (0-1.5); PCO2 52 mm Hg (35-45); PO2 53 mm Hg (80-100); pH 7.49 (7.35-7.45)
[2017-02-16 03:00] LABS: COMMENTS - BLOOD GASES C+; DEVICE NCHH; FI02 100 %; O2 FLOW 60 L/MIN; SITE RR; TOTAL RESP RATE 27 resp/min
[2017-02-16 04:27] LABS: HEMATOCRIT 24.2 % (36.0-46.0); HEMOGLOBIN 7.5 G/DL (11.9-15.5); MCH 29.8 PG (29.0-34.0); NRBC (%) 0.3 /100 WBC (0-0); RBC DIS.WIDTH-SD 65.1 % (39-53); WHITE BLOOD COUNT 18.1 K/uL (4.1-10.2)
[2017-02-16 04:35] LABS: PLATELET COUNT 159 K/uL (156-360); RED BLOOD COUNT 2.52 M/uL (3.80-5.20)
[2017-02-16 04:36] LABS: INTER. NORMALIZED RATIO 1.9
[2017-02-16 04:53] LABS: CHLORIDE 92 mEq/L (99-109); POTASSIUM 3.9 mEq/L (3.7-5.4); SODIUM 137 mEq/L (136-147)
[2017-02-16 04:55] LABS: GLUCOSE 211 mg/dL (70-99)
[2017-02-16 04:58] LABS: CREATININE 1.1 mg/dL (0.6-1.3); GFR ESTIMATE (CALCULATED) 53 mL/min/
[2017-02-16 04:59] LABS: UREA NITROGEN (BUN) 26 mg/dL (9-23)
[2017-02-16 05:41] LABS: C4 COMPLEMENT 26 MG/DL (10-40)
[2017-02-16 12:14] LABS: SCL-70 (SCLERODERMA) ANTIBODY 14 U/mL (0-99)
[2017-02-17] VITALS (18 sets, daily range): BP systolic 105–153; BP diastolic 60–86
[2017-02-17 05:16] LABS: CREATININE 1.1 mg/dL (0.6-1.3)
[2017-02-17 17:40] LABS: MYELOPEROXIDASE ANTIBODY (MPO) <1.0 AI (<1.0); PROTEINASE-3 ANTIBODY+ <1.0 AI (<1.0)
[2017-02-18] VITALS (25 sets, daily range): BP systolic 127–206; BP diastolic 64–132
[2017-02-18 07:11] LABS: HEMATOCRIT 22.1 % (36.0-46.0); MCH 29.4 PG (29.0-34.0); MCHC 29.4 G/DL (30.0-36.0); NRBC (%) 1.7 /100 WBC (0-0); RBC DIS.WIDTH-CV 18.9 % (11.8-14.6); RBC DIS.WIDTH-SD 67.6 % (39-53); RED BLOOD COUNT 2.21 M/uL (3.80-5.20); WHITE BLOOD COUNT 12.1 K/uL (4.1-10.2)
[2017-02-18 07:12] LABS: HEMOGLOBIN 6.5 G/DL (11.9-15.5)
[2017-02-18 07:40] LABS: PLAT.SUFFICIENCY DECREASED
[2017-02-18 08:07] LABS: PLATELET COUNT 103 K/uL (156-360)
[2017-02-18 08:17] LABS: ALBUMIN 3.1 G/DL (3.2-4.8); ALKALINE PHOSPHATASE 92 IU/L (3-129); AST (GOT) 729 IU/L (2-34); CHLORIDE 100 MEQ/L (99-109); DIRECT BILIRUBIN 1.2 mg/dL (0.0-0.3); GFR ESTIMATE (CALCULATED) > 59 mL/min/; GLUCOSE 194 mg/dL (70-99); POTASSIUM 4.4 MEQ/L (3.7-5.4); TOTAL BILIRUBIN 2.2 MG/DL (0.0-1.0); TOTAL PROTEIN 5.7 G/DL (6.4-8.3); UREA NITROGEN (BUN) 44 mg/dL (9-23)
[2017-02-18 08:22] LABS: SODIUM 144 MEQ/L (136-147)
[2017-02-18 08:38] LABS: ALT (GPT) 602 IU/L (3-49)
[2017-02-18 09:27] LABS: ANTI-CYCLC CITRULLINATED PEPT+ <16 Units (<20)
[2017-02-18 11:17] LABS: VANCOMYCIN, TROUGH 44.7 MCG/ML (10-20)
[2017-02-18 15:19] LABS: HEMATOCRIT 26.4 % (36.0-46.0); HEMOGLOBIN 8.2 G/DL (11.9-15.5); MCV 98.1 FL (83-99)
[2017-02-19] VITALS (21 sets, daily range): BP systolic 0–191; BP diastolic 0–83
[2017-02-19 12:06] LABS: HEMATOCRIT 27.1 % (36.0-46.0); HEMOGLOBIN 8.3 G/DL (11.9-15.5); MCH 29.5 PG (29.0-34.0); MCHC 30.6 G/DL (30.0-36.0); MCV 96.4 FL (83-99); NRBC (%) 10.4 /100 WBC (0-0); PLATELET COUNT 76 K/uL (156-360); RBC DIS.WIDTH-CV 19.2 % (11.8-14.6); RBC DIS.WIDTH-SD 65.9 % (39-53); WHITE BLOOD COUNT 10.9 K/uL (4.1-10.2)
[2017-02-19 12:10] LABS: RED BLOOD COUNT 2.81 M/uL (3.80-5.20)
[2017-02-19 12:22] LABS: INTER. NORMALIZED RATIO 1.6
[2017-02-19 12:34] LABS: CHLORIDE 98 MEQ/L (99-109); SODIUM 140 MEQ/L (136-147)
[2017-02-19 12:40] LABS: CREATININE 1.1 MG/DL (0.6-1.3); GFR ESTIMATE (CALCULATED) 53 mL/min/; UREA NITROGEN (BUN) 49 mg/dL (9-23)
[2017-02-19 12:41] LABS: GLUCOSE 295 mg/dL (70-99)
[2017-02-20] VITALS (23 sets, daily range): BP systolic 151–201; BP diastolic 46–101
[2017-02-20 05:49] LABS: BASOPHIL (%) 0.5 % (0-1); BASOPHIL COUNT 0.1 K/uL (0-0.1); EOSINOPHIL (%) 0 % (0-5); HEMATOCRIT 23.9 % (36.0-46.0); HEMOGLOBIN 7.5 G/DL (11.9-15.5); IMMATURE GRANULOCYTE (%) 4.6 % (0.0-0.7); LYMPHOCYTE (%) 4.6 % (15-42); LYMPHOCYTE COUNT 0.4 K/uL (1.0-2.8); MCH 29.9 PG (29.0-34.0); MCHC 31.4 G/DL (30.0-36.0); MCV 95.2 FL (83-99); MONOCYTE (%) 2.6 % (3-12); MONOCYTE COUNT 0.3 K/uL (0-0.8); NEUTROPHIL (%) 87.7 % (45-76); NEUTROPHIL COUNT 8.4 K/uL (1.8-6.4); NRBC (%) 6.2 /100 WBC (0-0); PLATELET COUNT 58 K/uL (156-360); RBC DIS.WIDTH-CV 19.2 % (11.8-14.6); RBC DIS.WIDTH-SD 64.8 % (39-53); RED BLOOD COUNT 2.51 M/uL (3.80-5.20); WHITE BLOOD COUNT 9.6 K/uL (4.1-10.2)
[2017-02-20 05:54] LABS: INTER. NORMALIZED RATIO 1.5
[2017-02-20 05:57] LABS: PTT 23.2 SEC (25-37)
[2017-02-20 06:40] LABS: CHLORIDE 100 MEQ/L (99-109); GFR ESTIMATE (CALCULATED) > 59 mL/min/; SODIUM 145 MEQ/L (136-147); UREA NITROGEN (BUN) 43 mg/dL (9-23)
[2017-02-20 06:52] LABS: GLUCOSE 87 mg/dL (70-99); POTASSIUM 3.9 MEQ/L (3.7-5.4)
[2017-02-21] VITALS (21 sets, daily range): BP systolic 96–208; BP diastolic 25–85
[2017-02-21 14:21] LABS: HEMATOCRIT 28.4 % (36.0-46.0); HEMOGLOBIN 8.6 G/DL (11.9-15.5); MCH 29.5 PG (29.0-34.0); MCHC 30.3 G/DL (30.0-36.0); MCV 97.3 FL (83-99); NRBC (%) 12.2 /100 WBC (0-0); PLATELET COUNT 56 K/uL (156-360); RBC DIS.WIDTH-CV 19.6 % (11.8-14.6); RED BLOOD COUNT 2.92 M/uL (3.80-5.20); WHITE BLOOD COUNT 9.7 K/uL (4.1-10.2)
== END 2017-02-22 00:20 | DRG 208 ==
LOC: EME → EDBD 23:19 → EME 23:19 → 4EAST 02-15 04:18 → EDOF 02-15 04:18 → 4WEST 02-15 04:18 → ENRESERV 02-15 04:26 → 4EAST 02-15 05:33 → ENRESERV 02-16 03:58 → 4WEST 02-16 04:01
PROVIDERS: Emergency Medicine; Hospitalist; Internal Medicine; Internal Medicine Critical Care Medicine; Internal Medicine Pulmonary Disease
DX: J96.01 Acute respiratory failure with hypoxia (principal); J18.9 Pneumonia, unspecified organism; J44.0 Chronic obstructive pulmonary disease with (acute) lower respiratory infection; E87.3 Alkalosis; R04.2 Hemoptysis; D68.32 Hemorrhagic disorder due to extrinsic circulating anticoagulants; I50.32 Chronic diastolic (congestive) heart failure; J45.901 Unspecified asthma with (acute) exacerbation; R31.0 Gross hematuria; L89.320 Pressure ulcer of left buttock, unstageable; L89.310 Pressure ulcer of right buttock, unstageable; I77.6 Arteritis, unspecified; E78.5 Hyperlipidemia, unspecified; G47.33 Obstructive sleep apnea (adult) (pediatric); D69.6 Thrombocytopenia, unspecified; E11.51 Type 2 diabetes mellitus with diabetic peripheral angiopathy without gangrene; I11.0 Hypertensive heart disease with heart failure; E03.9 Hypothyroidism, unspecified; I48.2 Chronic atrial fibrillation; I35.0 Nonrheumatic aortic (valve) stenosis; I46.9 Cardiac arrest, cause unspecified; D64.89 Other specified anemias; F41.9 Anxiety disorder, unspecified; J98.4 Other disorders of lung; E66.01 Morbid (severe) obesity due to excess calories; I34.0 Nonrheumatic mitral (valve) insufficiency; I36.1 Nonrheumatic tricuspid (valve) insufficiency; Z88.5 Allergy status to narcotic agent; Z79.01 Long term (current) use of anticoagulants; Z90.49 Acquired absence of other specified parts of digestive tract; Z68.37 Body mass index [BMI] 37.0-37.9, adult; Z96.659 Presence of unspecified artificial knee joint; Z79.51 Long term (current) use of inhaled steroids; Z85.3 Personal history of malignant neoplasm of breast; Z79.4 Long term (current) use of insulin; Z95.0 Presence of cardiac pacemaker; Z90.12 Acquired absence of left breast and nipple; Z80.0 Family history of malignant neoplasm of digestive organs; Z82.5 Family history of asthma and other chronic lower respiratory diseases; Z80.1 Family history of malignant neoplasm of trachea, bronchus and lung
CPT/HCPCS: 31500; 36600; 71010; 71275; 74176; 77012; 80048; 80053; 80076; 80202; 81003; 82565; 82803; 82948; 83520 90; 83735; 83880; 84100; 84145 90; 84484; 84520; 85014; 85018; 85025; 85027; 85610; 85730; 86021 90; 86160; 86200 90; 86235; 86850; 86900; 86901; 86920; 87040; 87070; 87075; 87116; 87205; 87206; 87502; 87641; 88305; 93005; 94002; 94003; 94640; 94640 76; 94667; 94668; 94760; 94799; 99202; 99281; 99285; J0360; J0456; J0692; J1120; J1644; J1815; J1940; J2060; J2543; J2920; J2930; J3010; J3370; J7050; J7500; J8530; P9016; P9017